=== PATIENT | male | born 1975 | race African-American/Black ===

== ENCOUNTER 2017-09-19 19:48 | Emergency (ER) | payer OTHER ==
[~2017-09-19] VITALS: Ht 188 cm; Wt 117.9 kg
[~2017-09-19 19:48] MED LIST: IBUPROFEN600 MG ORAL; NAPROSYN500 M1 ORAL; NORCO 10/3251 EA ORAL; NORCO 5-325 TA1 EACH ORAL
[2017-09-19 20:20] VITALS: BP 140/89
[2017-09-19] MEDS: Norco 5mg/325mg tab ORAL ONE (20:41)
[2017-09-19] MEDS: Bacitracin Oint UD TOPIC ONE (21:20)
[2017-09-19] MEDS ORDERED: IBUPROFEN600 MG ORAL (21:51)
[2017-09-19] MEDS ORDERED: NORCO 5-325 TA1 EACH ORAL (21:51)
[2017-09-19] MEDS: Tetanus/Diptheria/Pertussis Vaccine 0.5ml Syr IM ONE (21:53)
[2017-09-19 22:00] VITALS: BP 138/85
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
[2017-09-19 22:30] VITALS: BP 140/89
--- NOTE | 2017-09-20 09:00 | Diagnostic Imaging Report ---
Indication: Facial pain and trauma Technique: Continuous helical transaxial imaging of the maxillofacial structures obtained without intravenous contrast administration. Coronal 2-D reformats were also obtained. Study obtained in a Siemens sensation [address] Automatic Exposure Control was utilized. Total Dose length Product (DLP): 1245.[address] Dose Index Volume (CTDIvol): 70.38 mGy Comparison: None Findings: There is no evidence of an acute fracture. Paranasal sinuses and mastoids are clear. Soft tissues are unremarkable. IMPRESSION: No acute injury The CT scanner at [facility] is accredited by the [employer] and the scans are performed using dose optimization techniques as appropriate to a performed exam including Automatic Exposure control.
--- NOTE | 2017-09-20 09:00 | Diagnostic Imaging Report ---
Indication: Headache. Head trauma Technique: Contiguous 5 mm thick transaxial imaging of the head obtained in a Siemens Sensation [address] scanner. Soft tissue and bone windows generated. Automatic Exposure Control was utilized. Total Dose length Product (DLP): 1397.[address] Dose Index Volume (CTDIvol): 70.38 mGy Comparison: none Findings: The size and configuration of the cortical sulci, basal cisterns, and ventricles are within normal limits for age. There is no mass effect, midline shift, or edema identified. There is no evidence of acute hemorrhage or abnormal intra-axial or extra-axial fluid collections. The bones and soft tissues are unremarkable. Impression: No mass effect, edema or acute bleed. [facility] has communicated the preliminary results to the Emergency Department. Their findings are largely concordant with this report. The CT scanner at [facility] is accredited by the [employer] and the scans are performed using dose optimization techniques as appropriate to a performed exam including Automatic Exposure control.
--- NOTE | 2017-09-20 10:52 | Diagnostic Imaging Report ---
Indication: Pain Comparison: None Findings: 3 views of the right foot were obtained. No acute fracture is appreciated. There is an old fracture of the distal tibia. Mild plantar calcaneal spur formation noted. Tibiotalar marginal spur formation noted. IMPRESSION: No acute injury.
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
== END 2017-09-19 22:30 | disposition home or self-care (01) ==
LOC: EMR 20:25
DX: S00.83XA Contusion of other part of head, initial encounter (principal); S80.11XA Contusion of right lower leg, initial encounter; S01.511A Laceration without foreign body of lip, initial encounter; Y04.2XXA Assault by strike against or bumped into by another person, initial encounter; Y92.9 Unspecified place or not applicable; R51 Headache; Z23 Encounter for immunization; I10 Essential (primary) hypertension
CPT/HCPCS: 12011; 70450; 70486; 73590; 73630; 90471; 90715; 99284; Z7502

== ENCOUNTER 2018-05-03 14:47 | Emergency (ER) | payer SELFPAY ==
[~2018-05-03] VITALS: Ht 188 cm; Wt 115.7 kg
--- NOTE | 2018-05-03 15:22 | Emergency Room Report ---
History of Present Illness General Chief Complaint: Multiple Trauma/Fall Source: Patient Present Illness HPI this is a 42-year-old male who tripped and fell. Questionable loss of Consciousness. Complains of facial pain. Mild headache. An lip laceration no other associated injury. This happened prior to arrival. Denies any dental pain. Allergies: Coded Allergies: No Known Allergies (Unverified , 10/24/14) Patient History Past Medical History: see triage record Pertinent Family History: none Immunizations: UTD Nursing Documentation-PMH Hx Hypertension: Yes Review of Systems All Other Systems: negative except mentioned in HPI Physical Exam Vital Signs Date Time Temp Pulse Resp B/P (MAP) Pulse Ox O2 Delivery O2 Flow Rate FiO2 05/03/18 14:53 98.2 100 20 184/106 98 Room Air Sp02 EP Interpretation: normal General Appearance: normal inspection Eyes: bilateral eye normal inspection, bilateral eye PERRL ENT: other - Lip laceration, upper lip violating vermilion border. Neck: full range of motion, supple/symm/no masses Respiratory: chest non-tender, lungs clear, normal breath sounds, speaking full sentences Gastrointestinal: normal bowel sounds, non tender, soft, non-distended, no guarding, no rebound Musculoskeletal: back normal, gait/station normal, normal range of motion, non- tender, calf tenderness Neurologic: alert, oriented x3, responsive, motor strength/tone normal, sensory intact, speech normal Medical Decision Making Last Vital Signs Date Time Temp Pulse Resp B/P (MAP) Pulse Ox O2 Delivery O2 Flow Rate FiO2 05/03/18 14:53 98.2 100 20 184/106 98 Room Air JULIAN READ May 03, 2018 15:22
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
[2018-05-03 15:59] VITALS: BP 188/101
[2018-05-03 16:00] VITALS: BP 178/98
--- NOTE | 2018-05-03 16:09 | Diagnostic Imaging Report ---
Indications: Head injury after mechanical fall prior to arrival possible loss of consciousness Technique: Spiral acquisitions obtained through the brain. Angled axial and coronal 5 x 5 mm slices were reconstructed. Total dose length product 2065.05 mGycm. CTDI vol(s) 70.38,28.19 mGy. Dose reduction achieved using automated exposure control Comparison: 09/19/2017 Findings: There is a supraorbital scalp contusion just to the right of midline, not evident previously. No acute intracranial hemorrhage nor edema. No mass effect nor midline shift. Normal size ventricles and extra axial CSF spaces. Normal montano-white differentiation. The calvarium is intact. Small subcutaneous radiopacities within the area of swelling or evident previously, most likely represent dermal calcifications rather than foreign bodies. The sinuses and mastoids are clear. The orbits are unremarkable. Findings are unchanged Impression: Evidence of right supraorbital scalp soft tissue injury. Negative for acute intracranial bleed or mass effect The CT scanner at [facility] is accredited by the [employer] and the scans are performed using protocols designed to limit radiation exposure to as low as reasonably achievable to attain images of sufficient resolution adequate for diagnostic evaluation.
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
[2018-05-03] MEDS ORDERED: Norco 5mg/325mg tab ORAL ONE (17:00)
[2018-05-03] MEDS ORDERED: Morphine Sulfate 4mg/ml Inj (IV/IM USE ONLY) IVP ONE (18:30)
[2018-05-03] MEDS ORDERED: Morphine Sulfate 4mg/ml Inj (IV/IM USE ONLY) IM ONE (18:45)
[2018-05-03 20:13] VITALS: BP 157/102
[2018-05-03] MEDS ORDERED: CEPHALEXIN500 MG ORAL (20:26)
[2018-05-03] MEDS ORDERED: NORCO 5-325 TA1 EACH ORAL (20:28)
[2018-05-03] MEDS ORDERED: Bacitracin Oint UD TOPIC ONE (20:30)
[2018-05-03 21:08] VITALS: BP 140/92
== END 2018-05-03 21:06 | disposition home or self-care (01) ==
LOC: EMR 15:44
DX: S01.511A Laceration without foreign body of lip, initial encounter (principal); W01.0XXA Fall on same level from slipping, tripping and stumbling without subsequent striking against object, initial encounter; Y92.9 Unspecified place or not applicable; R51 Headache; I10 Essential (primary) hypertension
CPT/HCPCS: 70450; 70486; 96372; 99284; J2270